=== PATIENT | female | born 1960 | race Caucasian/White ===

== ENCOUNTER 2019-06-18 07:00 | Day surgery (SDC) | payer OTHER ==
[~2019-06-18] VITALS: Ht 165.1 cm; Wt 52.6 kg
[~2019-06-18 07:00] MED LIST: GLYBURIDE-METF1 EAC1 PO; METFORMIN HCL500 M3 PO
== END 2019-06-19 08:00 | disposition home or self-care (01) ==
LOC: CIR.AMB 07:00 → SURH 09:30 → EDSTATUS 09:30 → SURH 14:00 → O/R 18:36 → SURG-SUITE 18:36 → CIR.AMB 06-19 08:00 → SURG-SUITE 06-19 14:00
PROVIDERS: Plastic Surgery; Surgery
PROC: C71L1ZZ Planar Nuclear Medicine Imaging of Upper Chest Lymphatics using Technetium 99m (Tc-99m) (ICD-10-PCS; 2019-06-18)
PROC: 0HHV0NZ Insertion of Tissue Expander into Bilateral Breast, Open Approach (ICD-10-PCS; 2019-06-18)
PROC: 0HTV0ZZ Resection of Bilateral Breast, Open Approach (ICD-10-PCS; principal; 2019-06-18 14:00)
PROC: 07B50ZZ Excision of Right Axillary Lymphatic, Open Approach (ICD-10-PCS; 2019-06-18 14:00)
DX: C50.812 Malignant neoplasm of overlapping sites of left female breast (principal); C77.3 Secondary and unspecified malignant neoplasm of axilla and upper limb lymph nodes; Z41.1 Encounter for cosmetic surgery; Z90.13 Acquired absence of bilateral breasts and nipples
CPT/HCPCS: 19303; 38525; 38792; 19357; C1789

== ENCOUNTER 2019-08-16 06:10 | Day surgery (SDC) | payer OTHER ==
[~2019-08-16 06:10] MED LIST changes: +TAMOXIFEN CITRA20 MG PO
[2019-08-16] MEDS ORDERED: PERCOCET 5-3251 EACH PO (09:29)
== END 2019-08-16 10:45 | disposition home or self-care (01) ==
LOC: CIR.AMB 06:10
DX: C50.112 Malignant neoplasm of central portion of left female breast (principal)